=== PATIENT | female | born 1955 | race Caucasian/White ===

== ENCOUNTER → 2016-06-12 | Outpatient (REF) ==
--- NOTE | 2016-06-12 09:54 | REP ---
LUMBAR SPINE, THREE VIEWS: HISTORY: Degenerative disc disease. There is no acute fracture. The L3-4 through L5-S1 intervertebral discs are decreased in height consistent with disc degeneration. There is sclerosis at the L4-5 and L5-S1 facets. There are 5 mm of grade 1 spondylolisthesis of L4 on L5. IMPRESSION: Degenerative change as described above. Signed by Selwyn Parr MD 06/12/2016 09:58 A
== END ==
LOC: M SMT 09:16
PROVIDERS: ATTEND Internal Medicine
DX: M54.5 Low back pain (principal)

== ENCOUNTER → 2018-08-27 | Outpatient (REF) | payer OTHER | LOC: M LAB LCGH 17:11 | PROVIDERS: ATTEND Obstetrics & Gynecology | DX: N93.9 Abnormal uterine and vaginal bleeding, unspecified (principal); C54.1 Malignant neoplasm of endometrium ==

== ENCOUNTER → 2018-11-19 | Outpatient (CLI) | payer MEDICARE, OTHER ==
[~2018-11-19] MED LIST: FEBU40TA2 PO; GABA-845 PO; HYDR12.55 PO; LISI10TA15 PO; METF10004 PO; METO50TA7 PO; POTA10808 PO; VICT18IN SC
--- NOTE | 2018-11-19 16:26 | RADONC ---
RADIATION ONCOLOGY CONSULTATION NOTE DATE: CHART NUMBER: [id number] DIAGNOSIS: Uterine carcinoma. STAGE: II, T2N0M0 ECOG PERFORMANCE STATUS: 0 CONSULTATION NOTE: Ms. Solorio is a very pleasant, 62-year-old white female with the diagnosis what appears to be a stage II, T2N0M0 well-differentiated endometrial adenocarcinoma who is presenting to us today status post total abdominal hysterectomy and bilateral salpingo-oophorectomy for consideration of postoperative radiation therapy in attempt to increase the likelihood of achieving local control and cure. HISTORY OF PRESENT ILLNESS: The patient was in her usual state of health until she had some postmenopausal bleeding. On 10/16/2018, the patient underwent a laparoscopic total hysterectomy and bilateral salpingo-oophorectomy, as well as a lymphadenectomy and pelvic washings. Pathology revealed a well-differentiated endometrial adenocarcinoma, endometrioid type. The tumor was located in the lower uterine segment and invaded the outer half of the myometrium. Cervical stromal involvement was focally present. There was no evidence of lymph vascular invasion. The parametria showed no evidence of malignancy. Two pelvic lymph nodes were sampled and were negative for malignancy as well. The patient has done well since surgery and is now presenting for discussion of postoperative radiation therapy. PAST MEDICAL HISTORY: The patient's past medical history is positive for diabetes, hypertension, arthritis and kidney stones. She has had a gastric ulcer as well neuropathy. The patient has had an umbilical hernia repair and lithotripsy. ALLERGIES: The patient is allergic to PENICILLIN, ALLOPURINOL, IODINE and ERYTHROMYCIN. SOCIAL HISTORY: The patient does not smoke cigarettes nor abuse alcohol. FAMILY HISTORY: The patient's family history is unknown as she is adopted. REVIEW OF SYSTEMS: The patient's review of systems is basically noncontributory. She has some dental issues and physical limitations with regards to her knees. Denies nausea, vomiting, fevers, chills, night sweats, diplopia, headaches, anxiety or depression, anorexia, weight loss, visual disturbances, chest pain, urinary or bowel difficulties, bone pain, or neurological problems. PHYSICAL EXAMINATION: The patient is a well-developed, well-nourished, 62-year-old white female, in no acute distress. HEENT exam is normocephalic, atraumatic. Extraocular movements are intact. There is no palpable cervical, supraclavicular, infraclavicular, axillary, or inguinal lymphadenopathy present. Lungs are clear to auscultation and percussion. Heart has a regular rate and rhythm. Abdomen is benign with no hepatosplenomegaly, masses, or tenderness. Skeletal examination reveals no tenderness to pressure or percussion of the bony skeleton. Extremities reveal no clubbing, cyanosis, or edema. Neurologic exam is grossly intact, as is the remainder of the physical examination. PSYCHIATRIC MENTAL HEALTH NURSE examination was deferred. ASSESSMENT: I have reviewed with the patient in detail the potential benefits as well as possible acute and chronic sequelae of external beam radiation therapy. We discussed logistics of treatment planning, simulation and subsequent fractionated daily radiation treatments. In addition, I have printed out a copy of the [employer] Guidelines for endometrial carcinoma, version 4.2019. We discussed the flow shard which shows a total abdominal hysterectomy and bilateral salpingo-oophorectomy as a standard and subsequent staging of stage II with a recommendation is postoperative radiation therapy either vaginal brachytherapy and/or external beam radiation therapy. The patient has agreed to radiation treatments and I have scheduled her for the next available simulation slot. Thank you for allowing us to participate in the care of this very pleasant woman. If I could be of any further assistance or provide you with any information, please feel free to contact me anytime. As always, warm regards. cc: MD Vargas Martínez MD
== END ==
LOC: M ONCR 08:56
PROVIDERS: ATTEND Radiology Radiation Oncology
DX: C54.1 Malignant neoplasm of endometrium (principal); E11.9 Type 2 diabetes mellitus without complications; I10 Essential (primary) hypertension; Z87.442 Personal history of urinary calculi; Z90.711 Acquired absence of uterus with remaining cervical stump; Z90.722 Acquired absence of ovaries, bilateral

== ENCOUNTER → 2018-12-17 | Outpatient (RCR) | payer MEDICARE ==
[2018-11-24 11:32] LABS: HEMATOCRIT 39.4 % (36.0-47.0); HEMOGLOBIN 12.8 g/dl (12.0-15.5); LYMPH % 34.9 % (24.0-44.0); MEAN CORPUSCULAR HEMOGLOBIN 29.6 pg (27.0-33.0); MEAN CORPUSCULAR HGB CONC 32.5 g/dl (32.0-36.5); MEAN CORPUSCULAR VOLUME 91.1 fl (80.0-96.0); NEUTROPHILS # 5.7 10^3/uL (1.8-7.7); NEUTROPHILS % 58.3 % (36.0-66.0); RED BLOOD COUNT 4.32 10^6/uL (4.00-5.40); WHITE BLOOD COUNT 9.7 10^3/uL (4.0-10.0)
--- NOTE | 2018-11-25 09:13 | RADONC ---
RADIATION ONCOLOGY SIMULATION NOTE DATE: 11/24/2018 CHART NUMBER: [id number] Ms. Solorio was taken to the CT scan for CT simulation of her pelvic field. CT was accomplished that difficulty or discomfort. Radiation treatment planning is underway and radiation treatments will begin subsequently. An immobilization device was created and will be used throughout the course of treatment. It was created without difficulty or discomfort. I was physically present throughout the course of CT simulation.
--- NOTE | 2018-11-30 15:39 | RADONC ---
RADIATION ONCOLOGY PROGRESS NOTE DATE: 11/30/2018 CHART NUMBER: [id number] PROGRESS NOTE: Ms. Solorio underwent her first fraction of radiation today for a dose of 180 cGy to her pelvis. Radiation was tolerated without difficulty or discomfort. REVIEW OF SYSTEMS: The patient's review of systems is noncontributory. Denies nausea, vomiting, fevers, chills, night sweats, diplopia, headaches, anxiety or depression, anorexia, weight loss, visual disturbances, chest pain, urinary or bowel difficulties, bone pain, or neurological problems. PHYSICAL EXAMINATION: The patient's skin clearly showed no evidence of radiation change present as this with this was her first fraction of treatment. The remainder of her physical exam remains unchanged as well. Ms. Solorio tolerated her first fraction well and radiation will continue as scheduled.
--- NOTE | 2018-12-14 11:57 | RADONC ---
RADIATION ONCOLOGY PROGRESS NOTE DATE: 12/14/2018 CHART NUMBER: [id number] PROGRESS NOTE: Ms. Solorio is presently at a dose of 1800 cGy to her pelvis and reports that she has been having loose bowel movements and even some watery diarrhea over the weekend. She did not take any Imodium until last night. She reported that she took an Imodium last night and since then has had no bowel movements or difficulties. REVIEW OF SYSTEMS: The patient's review of systems is otherwise noncontributory except for some skin discomfort. Denies nausea, vomiting, fevers, chills, night sweats, diplopia, headaches, anxiety or depression, anorexia, weight loss, visual disturbances, chest pain, urinary or bowel difficulties, bone pain, or neurological problems. PHYSICAL EXAMINATION: The patient's skin shows some erythema present but overall is in good condition with no evidence of moist or dry desquamation. The remainder of her physical exam remains unchanged. ASSESSMENT: Ms. Solorio is continuing with radiation at this point. Once again, she has been given dietary instructions and we have recommended that she continue using her Imodium. We will continue to follow her closely. In addition, I have sent a prescription for Silvadene to be applied to her skin.
[~2018-12-17] MED LIST changes: +SILV40CR EXT
== END ==
LOC: M ONCR 11-24 10:16
PROVIDERS: ATTEND Radiology Radiation Oncology
DX: C55 Malignant neoplasm of uterus, part unspecified (principal)

== ENCOUNTER → 2018-12-23 | Outpatient (REF) | payer MEDICARE ==
[2018-12-23 13:58] LABS: APPEARANCE, URINE HAZY (CLEAR); BACTERIA, URINE AUTO 1+ (NEGATIVE); BILIRUBIN, URINE AUTO NEGATIVE (NEGATIVE); BLOOD, URINE BLOOD NEGATIVE (NEGATIVE); COLOR, URINE YELLOW (YELLOW); GLUCOSE, URINE (UA) AUTO NEGATIVE (NEGATIVE); KETONE, URINE AUTO TRACE mg/dL (NEGATIVE); LEUKOCYTE ESTERASE, URINE AUTO TRACE (NEGATIVE); MUCUS, URINE SMALL (NEGATIVE); NITRITE, URINE AUTO NEGATIVE (NEGATIVE); PROTEIN, URINE AUTO NEGATIVE (NEGATIVE); RBC, URINE AUTO 1 /HPF (0-3); SPECIFIC GRAVITY URINE AUTO 1.012 (1.002-1.035); SQUAMOUS EPITHELIAL CELL UR AU 1 /HPF (0-6); UROBILINOGEN, URINE AUTO 0.2 mg/dL (0.0-2.0); WBC, URINE AUTO 5 /HPF (0-3)
== END ==
LOC: M LAB REF 13:00
PROVIDERS: ATTEND Specialist
DX: C55 Malignant neoplasm of uterus, part unspecified (principal)

== ENCOUNTER 2019-01-08 10:09 | Outpatient (RCR) | payer MEDICARE ==
--- NOTE | 2018-12-21 14:28 | RADONC ---
RADIATION ONCOLOGY PROGRESS NOTE DATE: 12/21/2018 CHART NUMBER: Shalonda Solorio, with a diagnosis of a uterine cancer, is currently receiving local regional radiotherapy to her pelvis. She is currently at a dose of 2700 cGy and seems to be tolerating her therapy reasonably well with the exception of some diarrhea. REVIEW OF SYSTEMS: She denies any nausea, vomiting, dysuria, hematuria or blood per rectum. Her energy level is somewhat diminished but she is still able to maintain most for day-to-day activities without any alteration of her lifestyle. Skin irritation is minimal to moderate. EXAMINATION FINDINGS: The patient has minimal skin erythema without focal desquamation. No palpable peripheral lymphadenopathy is appreciated. Lungs: Clear. Heart: Regular. The remainder of the physical examination is unchanged. IMPRESSION: Tolerating therapy reasonably well. PLAN: Treatments to continue.
--- NOTE | 2018-12-28 11:00 | RADONC ---
RADIATION ONCOLOGY PROGRESS NOTE DATE: 12/28/2018 CHART NUMBER: [id number] Ms. Solorio is presently at a dose of 3600 cGy to her pelvis and overall is tolerating treatments quite well with no significant difficulties related to her radiation therapy other than some urinary discomfort. REVIEW OF SYSTEMS: The patient's review of systems is positive for urinary discomfort, but is otherwise generally noncontributory. She denies nausea, vomiting, fevers, chills, night sweats, diplopia, headaches, anxiety or depression, anorexia, weight loss, visual disturbances, chest pain, urinary or bowel difficulties, bone pain, or neurological problems. PHYSICAL EXAMINATION: The patient's skin is in good condition with no evidence of moist or dry desquamation. The remainder of her physical exam remains unchanged. Ms. Solorio will continue with radiation at this point. We had obtained a urinalysis and culture and sensitivity, but the results were contaminated and I am repeating that at this point. Further recommendations will be made pending those results.
[2018-12-28 11:17] LABS: APPEARANCE, URINE CLOUDY (CLEAR); BACTERIA, URINE AUTO 1+ (NEGATIVE); BILIRUBIN, URINE AUTO NEGATIVE (NEGATIVE); BLOOD, URINE BLOOD NEGATIVE (NEGATIVE); COLOR, URINE AMBER (YELLOW); GLUCOSE, URINE (UA) AUTO NEGATIVE (NEGATIVE); KETONE, URINE AUTO NEGATIVE (NEGATIVE); LEUKOCYTE ESTERASE, URINE AUTO 3+ (NEGATIVE); MUCUS, URINE SMALL (NEGATIVE); NITRITE, URINE AUTO NEGATIVE (NEGATIVE); PROTEIN, URINE AUTO 1+ mg/dL (NEGATIVE); RBC, URINE AUTO 15 /HPF (0-3); SPECIFIC GRAVITY URINE AUTO 1.023 (1.002-1.035); SQUAMOUS EPITHELIAL CELL UR AU 4 /HPF (0-6); WBC, URINE AUTO 38 /HPF (0-3)
--- NOTE | 2018-12-30 12:21 | RADONC ---
RADIATION ONCOLOGY PROGRESS NOTE DATE OF SERVICE: 12/30/2018 CHART NUMBER: [id number] I obtained the results of the patient's culture and sensitivity on Ms. Rachel Solorio. It shows that is her bacterial organism is susceptible to Cipro. She is allergic to all the penicillins and erythromycin. I have therefore sent in a prescription for Cipro 500 mg b.i.d. for 10 days to her pharmacy. I called the patient to let her know and she reports that she has had watery diarrhea. I have therefore given the patient a treatment break for the remainder of this week and we will follow her closely. The patient does have my cell phone number and work number and has been instructed to call me if I could be of any assistance in the meantime. If she feels better, we can resume radiation sooner, of course.
--- NOTE | 2019-01-05 10:09 | RADONC ---
RADIATION ONCOLOGY PROGRESS NOTE DATE: 01/04/2019 CHART NUMBER: [id number] Ms. Solorio is presently at a dose of 3780 cGy to her pelvis and is tolerating her treatments better at this point. She does continue to have loose bowel movements but the discomfort and pain has improved since initiation of antibiotics. The patient's review of systems is positive for some continued urinary discomfort which is much improved. It is also positive for some loose bowel movements which are also improved. Her review of systems is otherwise noncontributory. She denies nausea, vomiting, fevers, chills, night sweats, diplopia, headaches, anxiety or depression, anorexia, weight loss, visual disturbances, chest pain, urinary or bowel difficulties, bone pain, or neurological problems. PHYSICAL EXAMINATION: The patient's skin is in good condition with no evidence of moist or dry desquamation. The remainder of her physical exam remains unchanged. Ms. Solorio is returning now after a short treatment break. She wishes to restart therapy and I believe it is worth doing that at this point. She only has four fractions left. Radiation will continue as scheduled.
[~2019-01-08 10:09] MED LIST changes: +CIPR-249 PO
--- NOTE | 2019-01-12 06:55 | RADONC ---
RADIATION ONCOLOGY NOTE DATE: 01/08/2019 CHART #: [id number] DIAGNOSIS: Uterine carcinoma. STAGE: II, T2N0M0. ECOG PERFORMANCE STATUS: 0. TREATMENT SUMMARY: Ms. Solorio is a very pleasant 63-year-old white female with the diagnosis of what appears to be a stage II, T2N0M0, well-differentiated endometrial adenocarcinoma who presented to us status post total abdominal hysterectomy and bilateral salpingo-oophorectomy for consideration of postoperative radiation therapy in an attempt to increase the likelihood of achieving local control. We treated the patient to her pelvis for a total dose of 4500 cGy delivered in 25 fractions of 180 cGy each over 39 elapsed days from 11/30/2018 through 01/08/2019. The patient's pelvis was treated on a linear accelerator utilizing a 15 MV photon beam via 3-D conformal technique with anterior, posterior, left and right lateral major. The patient did have some difficulty tolerating treatment with diarrhea which required a short treatment break, but was able complete therapy as prescribed overall and did quite well. I have scheduled the patient to see me again in 1 month for further followup. She will also continue to be followed by her other physicians as well. cc: MD Vargas Martínez MD
== END 2019-01-16 ==
LOC: M ONCR 10:09
PROVIDERS: ATTEND Radiology Radiation Oncology
DX: C55 Malignant neoplasm of uterus, part unspecified (principal); Z79.899 Other long term (current) drug therapy

== ENCOUNTER → 2019-02-04 | Outpatient (CLI) | payer MEDICARE ==
--- NOTE | 2019-02-11 08:57 | RADONC ---
RADIATION ONCOLOGY FOLLOWUP NOTE DATE OF SERVICE: 02/04/2019 CHART NUMBER: [id number] DIAGNOSIS: Uterine cancer. STAGE: Stage II, T2N0M0. ECOG PERFORMANCE STATUS: 0. FOLLOWUP NOTE: Ms. Solorio is a very pleasant 63-year-old white female with the diagnosis of a stage II, T2N0M0, well-differentiated endometrial adenocarcinoma who is presenting to us today for routine followup visit 1 month post completion of external beam radiation therapy. The patient presents today reporting that she is doing quite well with no complaints at this time related to her radiation therapy or disease. She is having no urinary or bowel difficulties and no bone pain. The patient's review of systems is noncontributory. Denies nausea, vomiting, fevers, chills, night sweats, diplopia, headaches, anxiety or depression, anorexia, weight loss, visual disturbances, chest pain, urinary or bowel difficulties, bone pain, or neurological problems. PHYSICAL EXAMINATION: The patient is a well-developed, well-nourished female in no acute distress. HEENT exam is normocephalic, atraumatic. Extraocular movements are intact. There is no palpable cervical, supraclavicular, infraclavicular, axillary, or inguinal lymphadenopathy present. Lungs are clear to auscultation and percussion. Heart has a regular rate and rhythm. Abdomen is benign with no hepatosplenomegaly, masses, or tenderness. Skeletal examination reveals no tenderness to pressure or percussion of the bony skeleton. Extremities reveal no clubbing, cyanosis, or edema. Neurologic exam is grossly intact, as is the remainder of the physical examination. [employer] examination was deferred at this time. ASSESSMENT: The patient is clinically JOSH at this time. I have set her up for routine followup in our office in three months' time. I have asked her to schedule her routine mammograms with her [employer] physician. If she has not had a [employer] examination in her routine followup for routine followup with me in 3 months, we will undertake those examinations here. In the meantime, the patient is doing well and is set to see me in 3 months. She will also continue be followed by her other physicians. cc: MD Vargas Martínez MD
== END ==
LOC: M ONCR 12:42
PROVIDERS: ATTEND Radiology Radiation Oncology
DX: Z08 Encounter for follow-up examination after completed treatment for malignant neoplasm (principal); Z85.42 Personal history of malignant neoplasm of other parts of uterus

== ENCOUNTER → 2019-05-28 | Outpatient (REF) | payer MEDICARE | LOC: M LAB REF 17:14 | PROVIDERS: ATTEND Dermatology | DX: L57.0 Actinic keratosis (principal); H61.002 Unspecified perichondritis of left external ear | CPT/HCPCS: 11102; 88305; G0463 ==

== ENCOUNTER → 2019-09-29 | Outpatient (CLI) | payer MEDICARE | LOC: M ONCR 10:00 | PROVIDERS: ATTEND General Practice | DX: C55 Malignant neoplasm of uterus, part unspecified (principal) ==

== ENCOUNTER → 2020-12-06 | Outpatient (CLI) | payer MEDICARE ==
[~2020-12-06] MED LIST changes: +COLA100C5 PO; +GABA-283 PO; -GABA-845 PO; +citracel
--- NOTE | 2020-12-06 14:31 | RADONC ---
Radiation Oncology Hx/FUP Radiation Oncology Hx/FUP Date of Service: Dec 06, 2020 Pt Identifier Rachel Solorio is a 64 year old female seen for a followup visit today at the department of radiation oncology for a history of [id number] endometrioid adenocarcinoma Grade 1 FIGO Stage II. She had OSCAR/BSO with Dr. Gee on 10/16/18. She completed adjuvant EBRT 45 Gy in 25 fractions on 01/08/19 Diagnosis/Treatment History Oncologic History Presented with post-menopausal bleeding. 10/16/18 OSCAR/BSO (Gerard) showing [id number] grade 1 endometrioid adenocarcinoma, outer 1/2 myometrial invasion, no LVSI, cervical stroma involved. FIGO stage II 11/30/18-01/08/19 EBRT 45 Gy in 25 fractions Interval History Rachel has been working with PCP regarding her hemorrhoids. She is on fiber supplement. She has had a colonoscopy in the last year which was negative for insidious pathology but did confirm extensive hemorrhoidal tissue internal and external. She has no urinary bother, no discharge or bleeding from below. Appetite and energy are good. Hoping to relocate to [address] [place] [address]. Had negative mammogram over the Summer. Current Therapy Surveillance Stage FIGO stage II, [id number] Social History: Never smoker Never drinker Allergies / Meds Home Meds Reported Medications [citracel] No Conflict Check 06/14/20 Docusate Sodium (Colace) 100 Mg Capsule, 1 CAP PO BID for 30 Days, #60 CAP 06/14/20 Liraglutide (Victoza 2-Benoit) 0.6 Mg/0.1 Ml Pen.injctr, 1.2 MG SC DAILY for 30 Days, #6 ML 11/19/18 Febuxostat (Febuxostat) 40 Mg Tablet, 40 MG PO, TAB 11/19/18 Potassium Citrate (Potassium Citrate 10MEQ (Urocit-K)) 10 Meq Tablet.er, 1080 MG PO, TAB 1080MG = 10MEQ 11/19/18 Metoprolol Tartrate (Metoprolol Tartrate) 50 Mg Tablet, 50 MG PO BID for 30 Days, #60 TAB 11/19/18 Metformin HCl (Metformin HCl) 1,000 Mg Tablet, 1000 MG PO BID, TAB 11/19/18 Hydrochlorothiazide (Hydrochlorothiazide) 12.5 Mg Tablet, 12.5 MG PO DAILY for 30 Days, #30 TAB 11/19/18 Lisinopril/Hydrochlorothiazide (Lisinopril-Hctz 10-12.5 mg Tab) 1 Each Tablet, 1 TAB PO DAILY for 30 Days, #30 TAB 11/19/18 Review of Systems Review of Systems Constitutional: Denies: Fever, Fatigue Eyes: Denies: Pain HEENT: Denies: Head Aches Skin: Denies: Rash Cardiovascular: Denies: Chest Pain, Palpitations Gastrointestinal: Denies: Nausea, Abdominal Pain, Hematochezia Genitourinary: Denies: Dysuria Neurological: Denies: Weakness, Numbness Psych: Denies: Mood Normal Physical Examination Vital Signs Wt 203 lbs T 98.2 P 56 RR 18 BP 120/80 O2 100% Pain 0 Fatigue 0 General Exam: Alert, Cooperative, No Acute Distress Eye Exam: PERRLA, EOMI ENT EXAM: Atraumatic Neck Exam: Supple Chest Exam: Clear to auscultation Heart Exam: Rate Normal Abdomen Exam: Soft Female Exam: Negative: Nl Ext Genitalia (Atrophic), Lesions (Normal appearing vaginal mucosa, no palpable lesions in the cuff. ), Discharge Extremity Exam: Negative: Edema Skin Exam: Negative: Nl turgor and temperature Neuro Exam: Normal Gait, Normal Speech, Cranial Nerves 3-12 NL Psych Exam: Mental status NL Diagnostic and Laboratory Diagnostic Review Radiologic images, relevant labs and pathology reports were personally reviewed and discussed with Ms. Solorio. Assessment and Plan Impression Assessment Ms. Solorio is a 64 year old female with a history of [id number] endometrioid adenocarcinoma Grade 1 FIGO Stage II. She had OSCAR/BSO with Dr. Gee on 10/16/18. She completed adjuvant EBRT 45 Gy in 25 fractions on 01/08/19. Rachel has stable bowel issues, no evidence of disease on exam. She is up to date with colonoscopy and mammograms. I explained that I do not see much value in continuing pap testing given her disease was not HPV associated and she has no lesions on exam. I think that biannual pelvic exams would suffice for irineo mohr at this time. I will thus see he in 1 year and her food and drink factory workers @ [facility] can see her in 6 months. Performance Status ECOG 1 Plan 12 months follow up Ms. Solorio was encouraged to call with questions or concerns in the interim period. Billing Statement Total time of [35] minutes was spent preparing for the visit [1], obtaining HPI [12], examining the patient [4], reviewing diagnostic tests [1], discussing management options [7], coordinating care [2], and writing this note [8]. ERIBERTO SHEIKH MD Dec 06, 2020 14:31
== END ==
LOC: M ONCR 11:28
PROVIDERS: ATTEND General Practice
DX: C55 Malignant neoplasm of uterus, part unspecified (principal); K64.8 Other hemorrhoids; Z79.84 Long term (current) use of oral hypoglycemic drugs; Z79.899 Other long term (current) drug therapy; Z90.710 Acquired absence of both cervix and uterus; Z92.3 Personal history of irradiation